=== PATIENT | female | born 1995 | race Caucasian/White ===

== ENCOUNTER 2017-05-21 09:49 | Emergency (ER) | payer BC ==
[2017-05-21 09:49] VITALS: BMI 26.5
[2017-05-21 09:54] VITALS: RESP 18; TEMP 97.3; O2SAT 99
--- NOTE | 2017-05-21 10:40 | ED PDOC ---
HPI: General Adult Time Seen by Provider: 05/21/17 10:15 Chief Complaint (Nursing): GI Problem Chief Complaint (Provider): Nausea, vomiting, one episode of diarrhea History Per: Patient History/Exam Limitations: no limitations Onset/Duration Of Symptoms: Hrs Have you had recent travel within the past 21 days to any of the following countries: [place], [place], [place] or [place]?: No Current Symptoms Are (Timing): Still Present Additional Complaint(s): 22 yo presents with lower abdominal pain, which is intermittent for a few hours and vomiting. PT states she will feel nauseous with mild dull lower abdominal pain prior to vomiting. Pt also reports one episode of loose stool without blood or mucous this morning. Pt states her last period was January but she is breast feeding her 8 month old so her menses have not been regular. Pt is not taking control or using condoms. Past Medical History Reviewed: Historical Data, Nursing Documentation, Vital Signs Vital Signs: Last Vital Signs Temp 97.3 F L 05/21/17 09:51 Pulse 109 H 05/21/17 09:51 Resp 18 05/21/17 09:51 BP 114/72 05/21/17 09:51 Pulse Ox 99 05/21/17 12:47 - Medical History PMH: Hypothyroidism Denies: Depression - Surgical History Surgical History: No Surg Hx - Family History Family History: States: No Known Family Hx - Living Arrangements Living Arrangements: With Family - Immunization History Hx Tetanus Toxoid Vaccination: Yes Hx Influenza Vaccination: No Hx Pneumococcal Vaccination: No - Home Medications Home Medications: Ambulatory Orders Medication Instructions Recorded Doxylamine/Pyridoxine HCl (B6) 1 each PO QPM #20 tablet. 05/21/17 [Kiel Hardy 10-10 mg Tablet] Nitrofurantoin Macrocrystals 100 mg PO BID #10 cap 05/21/17 [Macrobid] - Allergies Allergies/Adverse Reactions: Allergies Allergy/AdvReac Type Severity Reaction Status Date / Time No Known Allergies Allergy Verified 05/21/17 09:51 Review of Systems ROS Statement: Except As Marked, All Systems Reviewed And Found Negative Constitutional: Negative for: Fever, Chills Gastrointestinal: Positive for: Nausea, Vomiting Genitourinary Female: Negative for: Vaginal Bleeding, Pelvic Pain Physical Exam - Reviewed Nursing Documentation Reviewed: Yes Vital Signs Reviewed: Yes - Physical Exam Appears: Positive for: Well, Non-toxic, No Acute Distress Head Exam: Positive for: ATRAUMATIC, NORMAL INSPECTION, NORMOCEPHALIC Skin: Positive for: Normal Color, Warm, DRY Eye Exam: Positive for: Normal appearance ENT: Positive for: Normal ENT Inspection Neck: Positive for: Normal, Painless ROM Cardiovascular/Chest: Positive for: Regular Rate, Rhythm Respiratory: Positive for: CNT, Normal Breath Sounds Gastrointestinal/Abdominal: Positive for: Normal Exam, Soft. Negative for: Tenderness Back: Positive for: Normal Inspection Extremity: Positive for: Normal ROM Neurologic/Psych: Positive for: Alert, Oriented - Laboratory Results Result Diagrams: 05/21/17 10:48 05/21/17 10:48 - ECG O2 Sat by Pulse Oximetry: 99 Medical Decision Making Medical Decision Making: Pregnany test in ER (+) PT at unknown gestation. US without IUP however Beta HcG < 200 Disposition - Clinical Impression Clinical Impression: Nausea/vomiting in , UTI (urinary tract infection) - Patient ED Disposition Is Patient to be Admitted: No Counseled Patient/Family Regarding: Diagnosis, Need For Followup, Rx Given - [facility]position [facility] Disposition: Routine/Home Disposition Time: 12:45 Condition: STABLE Additional Instructions: Please continue vitamins. Follow-up with OB. Prescriptions: Doxylamine/Pyridoxine HCl (B6) [Kiel Hardy 10-10 mg Tablet] 1 each PO QPM #20 tablet. Nitrofurantoin Macrocrystals [Macrobid] 100 mg PO BID #10 cap Instructions: Nausea and Vomiting of Forms: [facility] (American)
[2017-05-21] MEDS ORDERED: Lactated Ringer's 1,000 ML IV SCH (10:45)
[2017-05-21 10:54] LABS: BASO % 0.2 % (0.0-2.0); EOS # 0.2 K/uL (0.0-0.7); EOS % 1.4 % (0.0-4.0); HEMOGLOBIN 13.7 g/dL (12.0-16.0); LYMPH # 1.1 K/uL (1.0-4.3); MEAN CORPUSCULAR HEMOGLOBIN 23.8 pg (27.0-31.0); MEAN CORPUSCULAR HGB CONC 32.2 g/dL (33.0-37.0); MEAN PLATELET VOLUME 9.9 fl (7.2-11.7); MONO # 0.6 K/uL (0.0-0.8); MONO % 4.8 % (0.0-10.0); NEUT # 11.3 K/uL (1.8-7.0); NEUT % 85.6 % (50.0-75.0); PLATELET COUNT 230 K/uL (130-400); RBC 5.75 Mil/uL (3.80-5.20); RED CELL DISTRIBUTION WIDTH 14.9 % (11.5-14.5); WHITE BLOOD COUNT 13.2 K/uL (4.8-10.8)
[2017-05-21 11:09] LABS: ALB/GLOB RATIO 1.2 (1.0-2.1); ALBUMIN 4.9 g/dL (3.5-5.0); ALT/SGPT 30 U/L (9-52); AST/SGOT 18 U/L (14-36); BLOOD UREA NITROGEN 17 mg/dl (7-17); CALCIUM 9.6 mg/dL (8.4-10.2); GFR AFRICAN-AMERICAN > 60; GFR NON-AFRICAN AMERICAN > 60
[2017-05-21 11:52] LABS: ANISOCYTOSIS SLIGHT; EOSINOPHIL 2 % (0-7); LYMPHOCYTE 6 % (20-50); MONOCYTE 2 % (0-10); NEUTROPHIL 90 % (42-75); PLATELET ESTIMATE NORMAL (NORMAL); TOTAL CELLS COUNTED 100
[2017-05-21 11:54] LABS: TEARDROP CELLS SLIGHT
--- NOTE | 2017-05-21 12:36 | US ---
HISTORY: () urine preg, LMP dec, COMPARISON: None available. TECHNIQUE: Transvaginal pelvic ultrasound was performed. FINDINGS: UTERUS: Measures 7.1 x 5.7 x 4.6 cm. Normal in size and appearance. No fibroid or other mass lesion seen. There is a nonspecific posterior fundal calcification. ENDOMETRIUM: There is thickening of the central endometrial echo complex which measures 2.1 cm. There is a tiny cystic area in the superior endometrial cavity measuring 5 mm. CERVIX: No cervical abnormality identified. RIGHT OVARY: Measures 2.9 x 1.5 x 3.7 cm. No solid mass. Normal flow. LEFT OVARY: Measures 2.8 x 3.3 x 2 .7 cm. No solid mass. Normal flow. There is a 2.3 x 2.3 x 2.2 cm cyst. FREE FLUID: There is trace free fluid in the left adnexa. OTHER FINDINGS: None. IMPRESSION: Thickening of central endometrial echo complex and 5 mm cystic area in the superior endometrium is nonspecific. Findings are nonspecific and could represent decidual reaction or small amount of fluid in the superior endometrial canal. 2.3 cm simple cyst in the left ovary. Clinical follow-up is advised. Correlation with beta HCG levels and follow-up ultrasound may be performed for reassessment as clinically indicated.
[2017-05-21 13:49] LABS: SQUAMOUS EPITHIAL 2 /hpf (0-5); URINE AMORPHOUS SEDIMENT RARE /ul (<OCC); URINE BACTERIA RARE (<OCC); URINE BILIRUBIN NEGATIVE (NEGATIVE); URINE BLOOD NEGATIVE (NEGATIVE); URINE CLARITY TURBID (Clear); URINE COLOR YELLOW (YELLOW); URINE GLUCOSE (UA) NEG (Normal); URINE LEUKOCYTE ESTERASE NEG Leu/uL (Negative); URINE PROTEIN 30 mg/dL (NEGATIVE); URINE UROBILINOGEN 0.2-1.0 mg/dL (0.2-1.0)
[2017-05-21 16:36] VITALS: BP 110/70; PULSE 94
== END 2017-05-21 14:20 | disposition home or self-care (01) ==
LOC: H.ER 09:49
DX: O21.9 Vomiting of pregnancy, unspecified (principal); O23.40 Unspecified infection of urinary tract in pregnancy, unspecified trimester; E03.9 Hypothyroidism, unspecified
CPT/HCPCS: 76817; 80053; 81003; 81025; 84702; 85025; 87086; 99284; J7120